=== PATIENT | female | born 1975 ===

== ENCOUNTER 2016-12-11 08:16 | Inpatient (IN) | payer OTHER ==
[2016-12-04 11:28] VITALS: BMI 30.7
[2016-12-11] MEDS ORDERED: Lidocaine 1% Inj (20ml) ONE (09:38)
[2016-12-11] MEDS ORDERED: cefOXitin IV 2 gm in Dextrose 2 GM/50 ML BAG IVPB ONE (09:38)
[2016-12-11] MEDS ORDERED: Lactated Ringer's 1,000 ML IV ONE ×3 (11:00→15:15)
[2016-12-11] MEDS ORDERED: Propofol 10 mg/ml Inj (20 ML) ONE (11:06)
[2016-12-11] MEDS ORDERED: Succinylcholine Chloride 20 mg/ml Syr (5 ml) IV ONE (11:06)
[2016-12-11] MEDS ORDERED: Midazolam 2 MG/2 ML VIAL ONE (11:06)
[2016-12-11] MEDS ORDERED: Rocuronium 10 mg/ml (10 ml) ONE (11:07)
[2016-12-11] MEDS ORDERED: Neostigmine Methylsulfate 3mg/3ml Syringe IV ONE (12:50)
[2016-12-11] MEDS ORDERED: Morphine Monoject Barrel PCA 1mg/ml IV PRN (13:31)
[2016-12-11] MEDS: HYDROmorphone 0.5 mg/0.5 ml ISec IVP PRN ×2 (13:40→13:55)
[2016-12-11] MEDS ORDERED: Lactated Ringer's 1,000 ML IV SCH (15:00)
--- NOTE | 2016-12-11 15:00 | PCM.SURG1 ---
Surgeon's Initial Post Op Note - Surgeon's Notes Surgeon: Dr Warner Civil Engineering Drafter: Dr Cummings Type of Anesthesia: General Endo Anesthesia Administered By: JOHN Paige supervised by Dr James Pre-Operative Diagnosis: Large Fibroid Uterus with Menorrhagia Operative Findings: 22 wk sized fibriod nodule on the left salo-lateral part of th uterus pushing an 8wk sized uterus to the right. Stretched but Normal looking bilateral ovaries and fallopian tubes. Cevix elongated to about 8-9cm. IVFluid intake 1800mls. EBL- 150mls. Urine Output 300mls Post-Operative Diagnosis: Same As preop Diagnosis Operation Performed: Total Abdominal Hysterectomy with Bilateral Salpingectomy Specimen/Specimens Removed: Uterus, fibroid nodule and fallopian tubes. Estimated Blood Loss: EBL {In ML}: 150 Blood Products Given: N/A Post-Op Condition: Good Date of Surgery/Procedure: 12/11/16 Time of Surgery/Procedure: 13:15
[2016-12-11] MEDS: cefOXitin IV 2 gm in Dextrose 2 GM/50 ML BAG IVPB SCH (20:54)
[2016-12-11] MEDS: Oxycodone/Acetaminophen 5/325 mg Tab PO PRN (20:59)
[2016-12-12] MEDS: Oxycodone/Acetaminophen 5/325 mg Tab PO PRN ×3 (02:56→21:31)
[2016-12-12] MEDS: cefOXitin IV 2 gm in Dextrose 2 GM/50 ML BAG IVPB SCH ×2 (05:00→12:28)
[2016-12-12 07:27] LABS: HEMATOCRIT 36.4 % (34.0-47.0); MEAN CELL VOLUME 92.6 fL (81.0-99.0); MEAN CORPUSCULAR HGB CONC 33.5 g/dL (33.0-37.0); MEAN PLATELET VOLUME 7.4 fL (7.2-11.7)
[2016-12-12 07:29] LABS: WHITE BLOOD COUNT 13.2 K/uL (4.8-10.8)
[2016-12-12 07:55] LABS: CHLORIDE 103 mmol/L (98-107); POTASSIUM 3.7 mmol/L (3.6-5.2); SODIUM 137 mmol/L (132-148)
[2016-12-12 07:58] LABS: BLOOD UREA NITROGEN 8 mg/dL (7-17); CARBON DIOXIDE 25 mmol/L (22-30); GFR AFRICAN-AMERICAN > 60
[2016-12-12 07:59] LABS: CALCIUM 8.3 mg/dl (8.6-10.4); GLUCOSE,RANDOM 145 mg/dL (65-105)
--- NOTE | 2016-12-12 08:08 | CP.PCM.PN ---
<Cristy Llanes - Last Filed: 12/12/16 08:17> Subjective - Date & Time of Evaluation Date of Evaluation: 12/12/16 Time of Evaluation: 08:00 - Subjective Subjective: Patient seen and examined at bedside. Per nursing, no acute events overnight. Patient is doing well, pain is controlled. Patient is OOB to chair. Tolerating clear liquid diet. Denies passing flatus or BM. Rodgers out this am, has not urinated yet. Reports having occasional nausea but denies vomiting. Denies headaches, dizziness, cp, sob, palpitations. Objective - Vital Signs/Intake and Output Vital Signs (last 24 hours): Temp Pulse Resp BP Pulse Ox 99.5 F 68 20 120/65 97 12/11/16 16:25 12/11/16 16:25 12/11/16 16:25 12/11/16 16:25 12/11/16 16:25 Intake and Output: 12/12/16 12/12/16 06:59 18:59 Output Total 1500 Balance -1500 - Medications Medications: Current Medications Enoxaparin Sodium (Lovenox) 30 mg SC DAILY [facility] Cefoxitin Sodium (Mefoxin Iv 2 Gm Duplex) 2 gm in 50 mls @ 50 mls/hr IVPB Q8H [facility] Stop: 12/12/16 13:19 Last Admin: 12/12/16 05:00 Dose: 50 mls/hr Lactated Ringer's (Lactated Ringer's) 1,000 mls @ 0 mls/hr IV .Q0M [facility] PRN Reason: Per Protocol Last Admin: 12/11/16 22:57 Dose: 125 mls/hr Ibuprofen (Motrin Tab) 600 mg PO TID [facility] Last Admin: 12/11/16 18:12 Dose: 600 mg Morphine Sulfate/Sodium Chloride (Morphine Spark Plug Assembler Monoject Barrel) 1 mg IV Q4H PRN ; Protocol PRN Reason: Pain, moderate (4-7) Ondansetron HCl (Zofran Inj) 4 mg IVP Q8H PRN PRN Reason: Nausea/Vomiting Oxycodone/Acetaminophen (Percocet 5/325 Mg Tab) 2 tab PO Q4 PRN PRN Reason: Pain, severe (8-10) Stop: 12/14/16 14:50 Last Admin: 12/12/16 06:06 Dose: 2 tab - Labs Labs: 12/12/16 07:08 12/12/16 07:08 - Constitutional Appears: Well, No Acute Distress - Head Exam Head Exam: ATRAUMATIC, NORMAL INSPECTION - Eye Exam Eye Exam: EOMI, Normal appearance - ENT Exam ENT Exam: Mucous Membranes Moist - Neck Exam Neck Exam: Full ROM - Respiratory Exam Respiratory Exam: Clear to Ausculation Bilateral, NORMAL BREATHING PATTERN. absent: Rales, Rhonchi, Wheezes Additional comments: ISS at the bedside - Cardiovascular Exam Cardiovascular Exam: REGULAR RHYTHM, +S1, +S2. absent: Murmur - GI/Abdominal Exam GI & Abdominal Exam: Soft, Tenderness, Hypoactive Bowel Sounds Additional comments: Dressing c/d/i Abdominal binder in place - Extremities Exam Extremities Exam: Full ROM, Normal Inspection. absent: Calf Tenderness - Back Exam Back Exam: NORMAL INSPECTION - Neurological Exam Neurological Exam: Alert, Awake, Oriented x3 - Psychiatric Exam Psychiatric exam: Normal Affect, Normal Mood - Skin Skin Exam: Normal Color, Warm Assessment and Plan - Assessment and Plan (Free Text) Assessment: 41 yo s/p EDELMIRA with BSO POD#1 Plan: 1. Stable, afebrile 2. Pain control - percocet and motrin prn 3. F/U am CBC 4. Advance diet as tolerated 5. Rodgers out, f/u voiding trial 6. Continue abx 7. Encourage ambulation and hydration/ Encourage ISS use 8. Continue routine post op care 9. Lovenox 30mg SQ for DVT ppx 10. Plan d/w attending <Oswald Warner O - Last Filed: 12/13/16 10:19> Objective - Vital Signs/Intake and Output Vital Signs (last 24 hours): Temp Pulse Resp BP Pulse Ox 98.1 F 87 18 96/65 L 98 12/13/16 08:00 12/13/16 08:00 12/13/16 08:00 12/13/16 08:00 12/13/16 08:00 - Medications Medications: Current Medications Enoxaparin Sodium (Lovenox) 30 mg SC DAILY [facility] Last Admin: 12/13/16 09:47 Dose: 30 mg Lactated Ringer's (Lactated Ringer's) 1,000 mls @ 0 mls/hr IV .Q0M [facility] PRN Reason: Per Protocol Last Admin: 12/11/16 22:57 Dose: 125 mls/hr Ibuprofen (Motrin Tab) 600 mg PO TID [facility] Last Admin: 12/13/16 09:46 Dose: 600 mg Morphine Sulfate/Sodium Chloride (Morphine Spark Plug Assembler Monoject Barrel) 1 mg IV Q4H PRN ; Protocol PRN Reason: Pain, moderate (4-7) Ondansetron HCl (Zofran Inj) 4 mg IVP Q8H PRN PRN Reason: Nausea/Vomiting Oxycodone/Acetaminophen (Percocet 5/325 Mg Tab) 2 tab PO Q4 PRN PRN Reason: Pain, severe (8-10) Stop: 12/14/16 14:50 Last Admin: 12/12/16 21:31 Dose: 2 tab - Labs Labs: 12/12/16 07:08 12/12/16 07:08 Attending/Attestation - Attestation I have personally seen and examined this patient.: Yes I have fully participated in the care of the patient.: Yes I have reviewed all pertinent clinical information, including history, physical exam and plan: Yes
[2016-12-12] MEDS: Enoxaparin 30 mg Syringe SC SCH (15:28)
[2016-12-13 08:14] VITALS: BP 96/65; PULSE 87; RESP 18; TEMP 98.1; O2SAT 98
[2016-12-13] MEDS: Enoxaparin 30 mg Syringe SC SCH (09:47)
--- NOTE | 2016-12-13 10:30 | CP.PCM.PN ---
Subjective - Date & Time of Evaluation Date of Evaluation: 12/13/16 Time of Evaluation: 10:21 - Subjective Subjective: Pt is s/p EDELMIRA and B/L Salpingectomy, POD#2 reports ambulation, passing gas, tolerating meals, no fever or chills. Pt will be discharged home today to f/u in 2 weeks. All other complaints to be sent to the nearest ER or to the [facility]. Objective - Vital Signs/Intake and Output Vital Signs (last 24 hours): Temp Pulse Resp BP Pulse Ox 98.1 F 87 18 96/65 L 98 12/13/16 08:00 12/13/16 08:00 12/13/16 08:00 12/13/16 08:00 12/13/16 08:00 - Medications Medications: Current Medications Enoxaparin Sodium (Lovenox) 30 mg SC DAILY [facility] Last Admin: 12/13/16 09:47 Dose: 30 mg Lactated Ringer's (Lactated Ringer's) 1,000 mls @ 0 mls/hr IV .Q0M [facility] PRN Reason: Per Protocol Last Admin: 12/11/16 22:57 Dose: 125 mls/hr Ibuprofen (Motrin Tab) 600 mg PO TID [facility] Last Admin: 12/13/16 09:46 Dose: 600 mg Morphine Sulfate/Sodium Chloride (Morphine M48 M60 Armor Crewman Monoject Barrel) 1 mg IV Q4H PRN ; Protocol PRN Reason: Pain, moderate (4-7) Ondansetron HCl (Zofran Inj) 4 mg IVP Q8H PRN PRN Reason: Nausea/Vomiting Oxycodone/Acetaminophen (Percocet 5/325 Mg Tab) 2 tab PO Q4 PRN PRN Reason: Pain, severe (8-10) Stop: 12/14/16 14:50 Last Admin: 12/12/16 21:31 Dose: 2 tab - Labs Labs: 12/12/16 07:08 12/12/16 07:08 - Constitutional Appears: Well - Eye Exam Pupil Exam: PERRL - Respiratory Exam Respiratory Exam: Clear to Ausculation Bilateral, NORMAL BREATHING PATTERN - Cardiovascular Exam Cardiovascular Exam: REGULAR RHYTHM - GI/Abdominal Exam GI & Abdominal Exam: Soft, Normal Bowel Sounds Additional comments: Incision: Clean and dry. - Exam External exam: NORMAL EXTERNAL EXAM Assessment and Plan - Assessment and Plan (Free Text) Assessment: S/P Total Abdominal Hysterectomy and B/L Salpingectomy Plan: - Discharge. - F/U with Dr Warner in 2 weeks Home - Pelvic rest for 6 weeks.
--- NOTE | 2016-12-18 12:48 | OP ---
PREOPERATIVE DIAGNOSIS: Large fibroid uterus with menorrhagia. POSTOPERATIVE DIAGNOSIS: Large fibroid uterus with menorrhagia. PROCEDURE: A total abdominal hysterectomy with bilateral salpingectomy performed on 12/11/2016 at 01:00 p.m. SURGEON: Dr. Warner. YOUTH MINISTER: Dr. Cummings. Division Head to this procedure was needed for exposure of tissues and help in the conduct of the surgery. The salon assistant remained with the surgery throughout its entire length. TYPE OF ANESTHESIA: General endotracheal. ANESTHESIA ADMINISTERED BY: Nata LOPEZ, supervised by Dr. James. FINDINGS: A large 22-week size fibroid nodule on the left anterolateral part of the uterus, pushing an 8-week size uterus to the right side. Both fallopian tubes were stretched, but normal looking. The ovaries appeared normal. The cervix was elongated to about 8 to 9 cm. Estimated blood loss 150 mL. IV FLUID INTAKE: 1800 mL. ESTIMATED BLOOD LOSS: 150 mL. URINE OUTPUT: 300 mL of clear urine at the end of procedure. COMPLICATIONS: There were no complications. SPECIMEN: Sent for pathology are the uterus, the fibroid nodules, and both fallopian tubes. DESCRIPTION OF PROCEDURE: After obtaining informed consent, the patient was sent to the OR with IV running and Rodgers catheter in place. The patient was placed in a supine position on the OR table and after adequate general anesthesia, the patient was prepped and draped in the usual sterile fashion. Pfannenstiel skin incision was made using a scalpel. This was carried through the subcutaneous tissue, so the rectus fascia was identified. Using a Bovie device, a transverse incision was made in the rectus fascia, and this incision was carried through both sides by means of sharp dissection with Nayak scissors and blunt dissection. The rectus fascia was lifted off the underlying rectus muscles, both superiorly and inferiorly by means of sharp dissection and blunt dissection. The underlying rectus muscle was in the midline to expose the peritoneum, which was tented between 2 Irma clamps and carefully incised using the Metzenbaum scissors. Once the abdominal cavity was entered, the above findings were noted. The uterus at this point with a large nodule was brought out through the abdominal incisions. Myomectomy of the largest nodule was initially carried out by cutting through the serosa above the large nodule and shelving out a 22-week size fibroid nodule on the left anterolateral wall of the uterus. Once this had been done and detached from the uterus, regular total abdominal hysterectomy was performed. The round ligaments on both sides were grasped with a LigaSure device, cauterized and incised at the same time. A bladder flap was developed by incision along the bladder reflection over the anterior wall of the uterus and pushing the bladder over the surface of the anterior cervix using a sponge stick. The attachment of the ovarian ligament and the fallopian tubes on the right side to the right cornu of the uterus was grasped with a LigaSure device. This was cauterized and transected at the same time. The same procedure was done on the left side. The uterine vessels on both sides were skeletonized bilaterally using the Metzenbaum scissors. The uterine vessels on both sides were grasped bilaterally with a January clamp, transected, and suture ligated using #0 Vicryl on both sides once hemostasis was noted. There was sequential clamping, incision and the ligation of the tissues along the cervix using #0 Vicryl. This was conducted bilaterally until the vaginal cuff on both sides was encountered. The uterus was at this point amputated from the vaginal vault using the Ines scissors. The corners of the vaginal vaults were closed with #0 Vicryl and hemostasis noted. The rest of the vaginal vault was closed with interrupted [id number] sutures of #0 Vicryl. This was performed until hemostasis was noted. The right fallopian tube was grasped with Lisette scissors and the broad ligament under the tubal segment was grasped with the LigaSure device. This was cauterized and transected and this segment of the fallopian tube given for pathological evaluation. The same procedure was done on the left fallopian tube and sent for pathology. Once hemostasis was noted, the pelvis was copiously irrigated with warm saline. Once hemostasis was assured, all instruments and laparotomy pads that were used were taken out of the abdominal cavity and attention was sent to the anterior abdominal wall which was closed in layers with 2-0 Vicryl for the peritoneum and the rectus muscles. The rectus fascia was reapproximated using Vicryl #0. The subcutaneous tissue was brought together using #2-0 plain catgut. The skin was closed in the subcuticular fashion using #4-0 Vicryl. All counts of instruments, laparotomy pads and needles used were correct x3, and the patient was sent to the recovery room awake and in stable condition. Oswald Warner MD [facility]
== END 2016-12-13 11:15 | disposition home or self-care (01) | DRG 359 ==
LOC: C.SDS 08:16 → C.4M 14:50
PROVIDERS: ADMIT Obstetrics & Gynecology; ATTEND Obstetrics & Gynecology
PROC: 0UT70ZZ Resection of Bilateral Fallopian Tubes, Open Approach (ICD-10-PCS; 2016-12-11)
PROC: 0UTC0ZZ Resection of Cervix, Open Approach (ICD-10-PCS; 2016-12-11)
PROC: 0UT90ZZ Resection of Uterus, Open Approach (ICD-10-PCS; principal; 2016-12-11 10:00)
DX: D25.9 Leiomyoma of uterus, unspecified (principal); N88.8 Other specified noninflammatory disorders of cervix uteri; N92.0 Excessive and frequent menstruation with regular cycle

== ENCOUNTER 2018-04-30 14:32 | Outpatient (CLI) | payer SELFPAY, OTHER | END 2018-04-30 14:33 | disposition home or self-care (01) | LOC: C.MAMMO 14:32 | DX: Z12.31 Encounter for screening mammogram for malignant neoplasm of breast (principal) ==

== ENCOUNTER 2018-06-23 09:47 | Outpatient (CLI) | payer OTHER | END 2018-06-23 09:48 | disposition home or self-care (01) | LOC: C.MAMMO 09:48 | DX: R92.8 Other abnormal and inconclusive findings on diagnostic imaging of breast (principal) ==